=== PATIENT | male | born 1955 | race African-American/Black ===

== ENCOUNTER 2018-12-14 18:51 | Inpatient (IN) | payer OTHER, MEDICAID | END 2018-12-19 04:40 | disposition short-term general hospital (02) | LOC: TELE 12-15 03:18 → ER 18:51 → TELE-WESTW 12-15 12:21 | DX: A41.9 Sepsis, unspecified organism (principal); J18.9 Pneumonia, unspecified organism; J96.00 Acute respiratory failure, unspecified whether with hypoxia or hypercapnia; N17.0 Acute kidney failure with tubular necrosis; J18.1 Lobar pneumonia, unspecified organism; J90 Pleural effusion, not elsewhere classified; E44.0 Moderate protein-calorie malnutrition; C79.9 Secondary malignant neoplasm of unspecified site; C18.9 Malignant neoplasm of colon, unspecified; I13.0 Hypertensive heart and chronic kidney disease with heart failure and stage 1 through stage 4 chronic kidney disease, or unspecified chronic kidney disease; C92.00 Acute myeloblastic leukemia, not having achieved remission; I11.0 Hypertensive heart disease with heart failure; E87.6 Hypokalemia; N18.9 Chronic kidney disease, unspecified ==

== ENCOUNTER 2018-12-31 16:55 | Inpatient (IN) | payer OTHER, MEDICAID | END 2019-01-02 16:00 | disposition hospice, home (50) | LOC: TELE-WESTW 16:55 | DX: C92.00 Acute myeloblastic leukemia, not having achieved remission (principal); J18.9 Pneumonia, unspecified organism; J96.00 Acute respiratory failure, unspecified whether with hypoxia or hypercapnia; E44.0 Moderate protein-calorie malnutrition; D61.818 Other pancytopenia; I82.409 Acute embolism and thrombosis of unspecified deep veins of unspecified lower extremity; I10 Essential (primary) hypertension; I48.0 Paroxysmal atrial fibrillation; Z68.32 Body mass index [BMI] 32.0-32.9, adult; K21.9 Gastro-esophageal reflux disease without esophagitis; E87.6 Hypokalemia ==

== ENCOUNTER 2019-01-11 13:43 | Emergency (ER) | payer OTHER, MEDICAID ==
[~2019-01-11] VITALS: Ht 180.3 cm; Wt 86.2 kg
[2019-01-11 16:03] LABS: Albumin 2.3 g/dL (3.4-5.0); Anion Gap 6 (5-15); Blood Urea Nitrogen 71 mg/dL (7-18); Carbon Dioxide 27 mmol/L (21-32); Chloride 134 mmol/L (98-107); Glucose 140 mg/dL (74-106); Potassium 3.8 mmol/L (3.5-5.1)
[2019-01-11 16:11] LABS: Alanine Aminotransferase 18 U/L (16-61); Alkaline Phosphatase 75 U/L (45-117); Aspartate Aminotransferase 61 U/L (15-37); BUN/Creatinine Ratio 27.5; Bilirubin, Total 0.5 mg/dL (0.2-1.0); GFR African American 33 mL/min; GFR Non-African American 27 mL/min; Total Protein 8.1 g/dL (6.4-8.2)
[2019-01-11 16:22] LABS: Sodium 167 mmol/L (136-145)
[2019-01-11] MEDS ORDERED: hydrALAZINE HCL 20 MG/ML VL IV ONE (17:15)
[2019-01-11 17:39] LABS: Hematocrit 27.5 % (41.0-53.0); Hemoglobin 8.5 g/dL (13.5-17.5); Mean Corpuscular Hemoglobin 28.8 pg (28.0-32.0); Mean Corpuscular Volume 92.7 fL (80.0-100.0); Platelet Count (auto) 211 10^3/uL (140-450); Red Blood Cells 2.97 10^6/uL (4.5-5.90); Red Cell Distribution Width 16.2 % (11.8-14.3); White Blood Cell 25.2 10^3/uL (4.4-10.8)
[2019-01-11 18:37] LABS: Band Neutrophils % (manual) 0; Basophils % (manual) 0 (0.0-2.0); Eosinophils % (manual) 0 (0-7); Metamyelocytes % 0; Myelocytes % 0; Promyelocytes % 0
[2019-01-11] MEDS ORDERED: cefTRIAXone 1GM/50ML D5W 50 ML IV ONE (19:15)
[2019-01-11] MEDS ORDERED: cefTRIAXone SOD 1,000 MG VL IM ONE (19:15)
[2019-01-11] MEDS ORDERED: cloNIDine HCL 0.1 MG TAB PO ONE (19:15)
[2019-01-11 19:39] LABS: Lymphocytes % (manual) 15 (10.0-50.0)
[2019-01-11 19:40] LABS: Blast Cells 54; Monocytes % (manual) 16 (0-12); Reactive Lymphocytes 12
[2019-01-11] MEDS ORDERED: LIDOCAINE 2% (LOCAL ANESTH.) PF 5ml SDV IJ ONE (19:45)
[2019-01-11] MEDS ORDERED: cefTRIAXone W LIDOCAINE 1 GM IM IM ONE (19:45)
[2019-01-11 20:33] VITALS: BP 193/103
== END 2019-01-11 20:35 | disposition home or self-care (01) ==
LOC: EDBD 13:43 → ER 13:49
DX: C34.90 Malignant neoplasm of unspecified part of unspecified bronchus or lung (principal); J90 Pleural effusion, not elsewhere classified; J18.9 Pneumonia, unspecified organism; I10 Essential (primary) hypertension; E87.0 Hyperosmolality and hypernatremia; N19 Unspecified kidney failure; Z86.39 Personal history of other endocrine, nutritional and metabolic disease
CPT/HCPCS: 36415; 71045; 80053; 84484; 85007; 85027; 96372; 99284; J0696; J2001